=== PATIENT | female | born 1975 | race African-American/Black ===

== ENCOUNTER 2016-09-16 22:34 | Emergency (ER) | payer OTHER ==
[~2016-09-16] VITALS: Ht 170.2 cm; Wt 81.7 kg
[~2016-09-16 22:34] MED LIST: MACROBID 100 M100 M1 PO
[2016-09-16 22:41] VITALS: BP 144/102
== END 2016-09-16 23:13 | disposition home or self-care (01) ==
LOC: ER 22:34
DX: M72.2 Plantar fascial fibromatosis (principal); F17.210 Nicotine dependence, cigarettes, uncomplicated; Z88.5 Allergy status to narcotic agent

== ENCOUNTER 2016-12-19 14:26 | Emergency (ER) | payer OTHER ==
[~2016-12-19] VITALS: Ht 170.2 cm; Wt 122.5 kg
--- NOTE | ~2016-12-19 | EKG ---
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: [id number] : 1975 Requested By: Lui De Leon Order Number: [id number] MD: Nikhil Mejia Measurements Intervals [place] Rate: 79 P: 52 AR: 144 QRS: 13 QRSD: 87 T: 41 QT: 369 QTc: 424 Interpretive Statements Sinus rhythm No significant abnormality Compared to ECG 01/11/2016 01:55:06 No significant changes Electronically Signed On 12-20-2016 8:08:33 CDT by Nikhil Mejia [email or web address] <ELECTRONICALLY SIGNED> By: Nikhil Mejia MD, [facility] 12/20/16 0808 1453 1453 Nikhil Mejia MD, FACC /EPI
[~2016-12-19 14:26] MED LIST changes: +KEFLEX500 MG PO
[2016-12-19 15:37] LABS: ABSOLUTE NEUTROPHILS 4.3 thou/uL (1.4-8.2); BASOPHILS 0.7 % (0.0-2.0); EOSINOPHILS 2.6 % (0.0-3.0); HEMATOCRIT 38.8 % (37.0-47.0); HEMOGLOBIN 12.9 gm/dL (12.0-15.0); LYMPHOCYTES 29.9 % (24.0-44.0); MCH 29.7 pg (26.0-34.0); MCHC 33.2 g/dL (28.0-37.0); MCV 89.3 fL (80.0-100.0); MONOCYTES 6.6 % (1.0-8.0); PLATELET COUNT 230 thou/uL (150-400); POLYS 60.2 % (36.0-66.0); RBC 4.34 mil/uL (4.20-5.00); WBC 7.2 thou/uL (4.0-11.0)
[2016-12-19 15:42] LABS: MANUAL DIFF NO
[2016-12-19 15:45] LABS: ANION GAP 8 mmol/L (7-16); BUN 11 mg/dL (7-18); CALCIUM 9.3 mg/dL (8.5-10.1); CHLORIDE 104 mmol/L (98-107); CO2 29 mmol/L (21-32); GLUCOSE 98 mg/dL (74-106); POTASSIUM 3.8 mmol/L (3.5-5.1); SODIUM 141 mmol/L (136-145)
[2016-12-19 15:53] LABS: TROPONIN-I < 0.04 ng/mL (<0.04-0.07)
[2016-12-19] MEDS ORDERED: IBUPROFEN 600600 M1 PO (16:02)
[2016-12-19] MEDS ORDERED: HYDROCODONE-AP1 EAC6 PO (16:03)
[2016-12-19 16:20] VITALS: BP 145/94
== END 2016-12-19 16:03 | disposition home or self-care (01) ==
LOC: ER 14:26
PROVIDERS: Physician Assistant
DX: S46.912A Strain of unspecified muscle, fascia and tendon at shoulder and upper arm level, left arm, initial encounter (principal); F17.210 Nicotine dependence, cigarettes, uncomplicated; F10.99 Alcohol use, unspecified with unspecified alcohol-induced disorder; Z88.5 Allergy status to narcotic agent; X58.XXXA Exposure to other specified factors, initial encounter; Y93.89 Activity, other specified; Y92.89 Other specified places as the place of occurrence of the external cause; Y99.0 Civilian activity done for income or pay

== ENCOUNTER 2017-06-12 23:39 | Emergency (ER) | payer OTHER ==
[~2017-06-12] VITALS: Ht 170.2 cm; Wt 84.4 kg
[~2017-06-12 23:39] MED LIST changes: +HYDROCODONE-AP1 EAC6 PO; +IBUPROFEN 600600 M1 PO
[2017-06-13] MEDS ORDERED: AUGMENTIN 875-1 EACH PO (00:13)
== END 2017-06-13 00:35 | disposition home or self-care (01) ==
LOC: ER 23:39
DX: H66.93 Otitis media, unspecified, bilateral (principal); F17.210 Nicotine dependence, cigarettes, uncomplicated; Z88.5 Allergy status to narcotic agent

== ENCOUNTER 2017-10-03 00:05 | Emergency (ER) | payer OTHER ==
[~2017-10-03] VITALS: Ht 170.2 cm; Wt 81.7 kg
[~2017-10-03 00:05] MED LIST changes: +AUGMENTIN 875-1 EACH PO
[2017-10-03 00:30] VITALS: BP 141/95
[2017-10-03] MEDS ORDERED: ASPIR 8181 MG PO (00:37)
[2017-10-03] MEDS ORDERED: TRAMADOL 50 MG50 MG PO (02:56)
[2017-10-03] MEDS ORDERED: CIPROFLOXACIN500 M1 PO (02:56)
[2017-10-03] MEDS ORDERED: FLAGYL500 MG PO (02:56)
== END 2017-10-03 02:59 | disposition left against medical advice (07) ==
LOC: ER 00:05
DX: K61.0 Anal abscess (principal); J45.909 Unspecified asthma, uncomplicated; F17.210 Nicotine dependence, cigarettes, uncomplicated; R19.7 Diarrhea, unspecified; Z88.5 Allergy status to narcotic agent

== ENCOUNTER 2020-09-23 10:32 | Emergency (ER) | payer OTHER ==
[~2020-09-23] VITALS: Ht 170.2 cm; Wt 95.3 kg
[~2020-09-23 10:32] MED LIST changes: +ASPIR 8181 MG PO; +CIPROFLOXACIN500 M1 PO; +FLAGYL500 MG PO; +TRAMADOL 50 MG50 MG PO
[2020-09-23] MEDS ORDERED: NOHOMEMEDICATIONS (10:42)
[2020-09-23] MEDS ORDERED: MOBIC7.5 MG PO (12:57)
[2020-09-23] MEDS ORDERED: PREDNISONE 20 M20 MG PO (12:57)
[2020-09-23] MEDS ORDERED: MAGIC MOUTHWASH SWISH&SPIT ×2 (12:57→12:58)
[2020-09-23 13:30] VITALS: BP 140/68
== END 2020-09-23 13:30 | disposition home or self-care (01) ==
LOC: ER 10:32
DX: J02.0 Streptococcal pharyngitis (principal); Z20.822 Contact with and (suspected) exposure to COVID-19; J45.909 Unspecified asthma, uncomplicated; F17.210 Nicotine dependence, cigarettes, uncomplicated; Z98.51 Tubal ligation status; Z98.890 Other specified postprocedural states; Z88.5 Allergy status to narcotic agent